=== PATIENT | female | born 1955 | race Caucasian/White ===

== ENCOUNTER 2024-11-29 07:20 | Day surgery (SDC) | payer OTHER ==
[~2024-11-29] VITALS: Ht 167.6 cm; Wt 90.4 kg
[2024-11-29] VITALS (22 sets, daily range): BP systolic 87–144; BP diastolic 38–105
[~2024-11-29 07:20] MED LIST: Lactated Ringer's 1,000 ML IV SCH; MAGNESIUM OXID500 MG PO; Vitamin D1000 UNI1 PO
--- NOTE | 2024-11-29 07:58 | NUR ---
History, Chart, Medications and Allergies reviewed before start of procedure. Lungs clear T/O to Auscultation. Patient states colon prep results clear. Pre-Op teaching done. Pt verbalizes understanding. Patient confirms NPO status and agrees with scheduled surgery.
[2024-11-29] MEDS ORDERED: propofoL 40 ML IV ONE (08:18)
--- NOTE | 2024-11-29 08:22 | NUR ---
11/29/24 0822 Janny Myles CONFIRMED AND REVIEWED H&P, MEDCICATIONS, ALLERGIES, MEDICAL HISTORY, RESPIRATORY HISTORY, VITAL SIGNS, 3-LEAD EKG, CONSENTS, AND PHYSICIAN ORDERS. PATIENT CONFIRMS NPO STATUS AND AGREES WITH SCHEDULED PROCEDURE. MONITOR INTACT WITH CONTINUOUS PULSE OXIMETRY, CAPNOGRAPHY, 3-LEAD EKG, INTERMITTENT BP. SUPPLEMENTAL O2 TO BE TITRATED THROUGHOUT PROCEDURE TO MAINTAIN O2 SATURATION ABOVE 90%. PATIENT DETERMINED TO BE ASA APPROPRIATE FOR PROPOFOL SEDATION PRIOR TO START OF PROCEDURE BY DR. WILSON.
[2024-11-29] MEDS ORDERED: Midazolam HCl 1MG / ML 2ML Vial ONE (08:30)
[2024-11-29] MEDS ORDERED: Ampicillin Sod/Sulbactam Sod 3 GM in NS 100 ML IV ONE (09:05)
--- NOTE | 2024-11-29 10:13 | NUR ---
Patient up to Ambulate independently. Gait steady. Discharge instructions reviewed with patient. Patient verbalizes understanding. Copy given to patient to take home, [facility]. Patient States Post-Procedure ride home has been arranged. Discharged via wheelchair to private car for ride home. PT ABX FINISHED. DR WILSON REPORTS PT MAY DISCHARGE HOME NOW.
== END 2024-11-29 10:13 | disposition home or self-care (01) ==
LOC: ORD 07:20 → ORSCMMR 07:20 → ORD 08:30
PROVIDERS: Internal Medicine Gastroenterology
PROC: 0DBP8ZX Excision of Rectum, Via Natural or Artificial Opening Endoscopic, Diagnostic (ICD-10-PCS; principal; 2024-11-29 08:30)
PROC: 0DBK8ZX Excision of Ascending Colon, Via Natural or Artificial Opening Endoscopic, Diagnostic (ICD-10-PCS; principal; 2024-11-29 08:30)
DX: Z12.11 Encounter for screening for malignant neoplasm of colon (principal); D12.2 Benign neoplasm of ascending colon; D12.8 Benign neoplasm of rectum; K57.30 Diverticulosis of large intestine without perforation or abscess without bleeding; R19.5 Other fecal abnormalities; Z87.891 Personal history of nicotine dependence
CPT/HCPCS: 88305; J0295; J2250; J2704; J7120